=== PATIENT | female | born 1975 | race Hispanic/Latino ===

== ENCOUNTER 2016-04-22 19:18 | Emergency (ER) | payer SELFPAY ==
[2016-04-22 19:53] VITALS: BP 110/74; TEMP 97.2; O2SAT 95
--- NOTE | 2016-04-22 20:05 | ED.PDOC ---
History of Present Illness - General Chief Complaint: Fever Stated Complaint: fever / sinus congestion Time Seen by Provider: 04/22/16 20:02 Source: patient, RN notes reviewed, Vital Signs reviewed Exam Limitations: no limitations - History of Present Illness Initial Comments: Patient is a 40 y/o female who has had sinus congestion for the past 2 days and started having subjective fever today. She has a headache. She took Benadryl which helped a little. She has been very tired. She denies any tooth pain, sore throat or ear pain. The headache is mild and feels like pressure. Timing/Duration: 24 hours, getting worse Severity: mild Improving Factors: medication - Benadryl Worsening Factors: nothing Associated Symptoms: fever/chills, headaches, loss of appetite, weakness Allergies/Adverse Reactions: Allergies NO KNOWN ALLERGY Allergy (Verified 10/19/15 17:49) Home Medications: Ambulatory Orders Amoxicillin 875 mg PO BID #20 tab 04/22/16 Review of Systems - Review of Systems Constitutional: States: chills, fever, malaise, weakness EENTM: States: nose congestion Respiratory: States: no symptoms reported Cardiology: States: no symptoms reported Gastrointestinal/Abdominal: States: nausea Musculoskeletal: States: no symptoms reported Skin: States: no symptoms reported Neurological: States: weakness Endocrine: States: no symptoms reported Hematologic/Lymphatic: States: no symptoms reported All other Systems: Reviewed and Negative Past Medical History (General) - Patient Medical History Hx Seizures: No Hx Stroke: No Hx Dementia: No Hx Asthma: No Hx of COPD: No Hx Cardiac Disorders: No Hx Congestive Heart Failure: No Hx Pacemaker: No Hx Hypertension: Yes Hx Thyroid Disease: No Hx Diabetes: No Hx Gastroesophageal Reflux: No Hx Renal Disease: No Hx Cancer: No Hx of HIV: No Hx Hepatitis C: No Hx MRSA: No Surgical History: cholecystectomy - Vaccination History Hx Tetanus, Diphtheria Vaccination: No Hx Influenza Vaccination: No Hx Pneumococcal Vaccination: No Immunizations Up to Date: Yes - Social History Hx Tobacco Use: Yes Hx Chewing Tobacco Use: No Hx Alcohol Use: No Hx Substance Use: No Hx Substance Use Treatment: No Hx Depression: Yes Hx Physical Abuse: No Hx Emotional Abuse: No Hx Suspected Abuse: No - Female History Patient is a Female of Child Bearing Age (10 -59 yrs old): Yes Patient : No Family Medical History - Family History Mother Living Status: Still Living Hx Family Asthma: No Hx Family Congestive Heart Failure: No Hx Family Hypertension: Yes Hx Family Diabetes: Yes Hx Family Cancer: Yes Hx Family;Other: Thyroid problems Father Living Status: Hx Family Diabetes: Yes Hx Family;Other: Kidney problems Physical Exam - Physical Exam General Appearance: Alert, Comfortable, No apparent distress Eye Exam: bilateral normal Ears, Nose, Throat: hearing grossly normal, normal pharynx, nasal congestion, other - erythematous nasal mucous membranes Neck: non-tender, full range of motion, supple, lymphadenopathy (L) - Anterior cervical Respiratory: lungs clear, normal breath sounds, no respiratory distress, no accessory muscle use Cardiovascular/Chest: regular rate, rhythm, no edema, no gallop, no murmur Gastrointestinal/Abdominal: normal bowel sounds, non tender, soft, no organomegaly Extremity: normal range of motion, non-tender, normal inspection, no pedal edema Neurologic: alert, normal mood/affect, oriented x 3 Skin Exam: normal color, warm/dry Progress - EKG/XRAY/CT CT Ordered: No CT Interpretation Call Back: No Departure - Departure Clinical Impression: Acute sinusitis Qualifiers: Sinusitis location: unspecified location Recurrence: not specified Qualifier Code: (J01.90) Acute sinusitis, unspecified Time of Disposition: 20:07 Disposition: Discharge to Home or Self Care Condition: Excellent Departure Forms: ED Discharge - Pt. Copy, Patient Portal Self Enrollment Instructions: Sinusitis, DI for Sinusitis Diet: resume usual diet Prescriptions: Amoxicillin 875 mg PO BID #20 tab Home Medications: Ambulatory Orders Amoxicillin 875 mg PO BID #20 tab 04/22/16 Additional Instructions: Get over the counter: Flonase or Nasacort--two sprays in each nostril daily Pseudoephedrine (decongestant)-take per package instructions Guaifenesin (Mucinex)-take per package instructions Nasal saline wash--twice daily. Use only saline packets with distilled water. Follow product instructions. Tylenol 650 mg alternated with Ibuprofen 600 mg every 3 hours for fever/pain. Follow up with PCP if symptoms persist or ED if symptoms worsen.
== END 2016-04-22 20:18 | disposition home or self-care (01) ==
LOC: ER 19:18
DX: J01.90 Acute sinusitis, unspecified (principal); I10 Essential (primary) hypertension; Z87.891 Personal history of nicotine dependence

== ENCOUNTER 2020-01-11 10:41 | Emergency (ER) | payer SELFPAY ==
--- NOTE | 2020-01-11 10:55 | ED.PDOC ---
History of Present Illness - General Time Seen by Provider: 01/11/20 10:45 Source: patient, RN notes reviewed, Vital Signs reviewed, old records Exam Limitations: no limitations - History of Present Illness Initial Comments: 44 yo F with PMH HTN comes in with 4 days of body aches, chills, congestion, mild cough. Last night developed loose stools. no black or bloody bm. looks green per patient. no n/v/abd pain. no chest pain or shortness of breath. Was exposed to covid at [facility] but cousin who was Positive. Allergies/Adverse Reactions: Allergies NO KNOWN ALLERGY Allergy (Verified 10/19/15 17:49) Review of Systems - Review of Systems Constitutional: States: chills, malaise. Denies: fever EENTM: States: nose congestion. Denies: blurred vision, ear pain, ear discharge, nose pain, throat pain, mouth pain Respiratory: States: cough. Denies: short of breath Cardiology: Denies: chest pain, palpitations Gastrointestinal/Abdominal: States: diarrhea. Denies: abdominal pain, constipation, nausea, vomiting Genitourinary: Denies: discharge, dysuria, frequency Musculoskeletal: Denies: back pain, joint pain Skin: Denies: rash Neurological: States: headache. Denies: numbness, paresthesia, weakness Endocrine: Denies: unexplained weight loss Hematologic/Lymphatic: Denies: easy bleeding, easy bruising Past Medical History (General) - Patient Medical History Hx Seizures: No Hx Stroke: No Hx Dementia: No Hx Asthma: No Hx of COPD: No Hx Cardiac Disorders: No Hx Congestive Heart Failure: No Hx Pacemaker: No Hx Hypertension: Yes Hx Thyroid Disease: No Hx Diabetes: No Hx Gastroesophageal Reflux: No Hx Renal Disease: No Hx Cancer: No Hx of HIV: No Hx Hepatitis C: No Hx MRSA: No - Vaccination History Hx Tetanus, Diphtheria Vaccination: No Hx Influenza Vaccination: No Hx Pneumococcal Vaccination: No - Social History Hx Tobacco Use: Yes Hx Chewing Tobacco Use: No Hx Alcohol Use: No Hx Substance Use: No Hx Substance Use Treatment: No Hx Depression: Yes Hx Physical Abuse: No Hx Emotional Abuse: No Hx Suspected Abuse: No - Female History Patient : No Family Medical History - Family History Mother Living Status: Still Living Hx Family Asthma: No Hx Family Congestive Heart Failure: No Hx Family Hypertension: Yes Hx Family Diabetes: Yes Hx Family Cancer: Yes Hx Family;Other: Thyroid problems Father Living Status: Hx Family Diabetes: Yes Hx Family;Other: Kidney problems Physical Exam - Physical Exam General Appearance: Alert, Comfortable, Well Developed, Well Groomed, Well Hydrated, Well Nourished Eye Exam: bilateral normal Ears, Nose, Throat: hearing grossly normal, normal ENT inspection, normal pharynx Neck: non-tender, full range of motion, supple, normal inspection Respiratory: chest non-tender, lungs clear, normal breath sounds, no respiratory distress, no accessory muscle use Cardiovascular/Chest: normal peripheral pulses, regular rate, rhythm, no edema, no gallop, no JVD, no murmur Peripheral Pulses: radial,right: 2+, radial,left: 2+ Gastrointestinal/Abdominal: normal bowel sounds, non tender, soft, no organomega ly Rectal Exam: deferred Back Exam: normal inspection, no CVA tenderness, no vertebral tenderness Extremity: normal range of motion, non-tender, normal inspection, no pedal edema, no calf tenderness, normal capillary refill 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 II-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 nml as tested, no motor/sensory deficits, alert, normal mood/affect Skin Exam: normal color, warm/dry Progress - Progress Progress: 01/11/20 11:31 01/11/20 11:31 Discharge Stat Laboratory Results WBC 3.8 K/mm3 (4.8-10.8) L 01/11/20 11:04 RBC 5.04 M/mm3 (4.20-5.40) 01/11/20 11:04 Hgb 14.5 gm/dL (12.0-16.0) 01/11/20 11:04 Hct 42.5 % (36.0-47.0) 01/11/20 11:04 MCV 84.3 fl (81.0-99.0) 01/11/20 11:04 MCH 28.7 pg (27.0-31.0) 01/11/20 11:04 MCHC 34.1 g/dL (33.0-37.0) 01/11/20 11:04 RDW 13.6 % (11.5-14.5) 01/11/20 11:04 Plt Count 132 K/mm3 (130-400) 01/11/20 11:04 MPV 9.5 fl (7.40-10.4) 01/11/20 11:04 Absolute Neuts (auto) 1.70 K/uL (1.8-6.8) L 01/11/20 11:04 Absolute Lymphs (auto) 1.80 K/uL (1.0-3.4) 01/11/20 11:04 Absolute Monos (auto) 0.30 K/uL (0.2-0.8) 01/11/20 11:04 Absolute Eos (auto) 0.00 K/uL (0.0-0.4) 01/11/20 11:04 Absolute Basos (auto) 0.00 K/uL (0.0-0.1) 01/11/20 11:04 Neutrophils % 44.3 % (42.0-78.0) 01/11/20 11:04 Lymphocytes % 46.5 % (20.0-50.0) 01/11/20 11:04 Monocytes % 7.0 % (2.0-9.0) 01/11/20 11:04 Eosinophils % 1.2 % (1.0-5.0) 01/11/20 11:04 Basophils % 1.0 % (0.0-2.0) 01/11/20 11:04 Sodium 142 mmol/L (135-145) 01/11/20 11:04 Potassium 3.8 mmol/L (3.6-5.0) 01/11/20 11:04 Chloride 107 mmol/L (101-111) 01/11/20 11:04 Carbon Dioxide 24 mmol/L (21-31) 01/11/20 11:04 Anion Gap 14.8 (12-18) 01/11/20 11:04 BUN 14 mg/dL (7-18) 01/11/20 11:04 Creatinine 0.76 mg/dL (0.6-1.3) 01/11/20 11:04 BUN/Creatinine Ratio 18.4 (10-20) 01/11/20 11:04 Random Glucose 100 mg/dL (70-105) 01/11/20 11:04 Serum Osmolality 283.7 mOsm/L (275-295) 01/11/20 11:04 Calcium 8.9 mg/dL (8.4-10.2) 01/11/20 11:04 Total Bilirubin 0.5 mg/dL (0.2-1.0) 01/11/20 11:04 AST 42 IU/L (10-42) 01/11/20 11:04 ALT 59 IU/L (10-60) 01/11/20 11:04 Alkaline Phosphatase 88 IU/L (42-121) 01/11/20 11:04 C-Reactive Protein < 0.8 mg/dL (0-1.0) 01/11/20 11:04 Serum Total Protein 8.1 gm/dL (6.4-8.2) 01/11/20 11:04 Albumin 3.9 g/dl (3.2-5.5) 01/11/20 11:04 Globulin 4.2 gm/dL (2.3-3.5) H 01/11/20 11:04 Albumin/Globulin Ratio 0.9 (1.1-1.9) L 01/11/20 11:04 - Results/Orders Results/Orders: The data reviewed when caring for this patient included: nurse notes, prior records, etc. The history and assessments from nurses notes were reviewed and considered, and the patient's home medication list was also reviewed and considered. My assessment and the results of testing completed here in the ED were discussed with the patient/family. All questions were answered, and they express understanding of my assessment and the plan. They have been instructed to return if their symptoms worsen, and have been asked to follow up. return precautions given. Parvin Vasquez DO #[id number] - EKG/XRAY/CT XRAY: chest - no acute cardiopulmonary pathology Departure - Departure Clinical Impression: COVID-19 Time of Disposition: 11:21 Disposition: Discharge to Home or Self Care Condition: Fair Instructions: Cough, Adult (DC) Diet: resume usual diet Activity: increase activity as tolerated Referrals: Nilda Dyer MD [Primary Care Provider] - 1-2 Weeks
[2020-01-11] MEDS ORDERED: DEXAMETHASONE INJ 10 MG/ML VIAL IV ONE (11:20)
--- NOTE | 2020-01-11 11:25 | RAD ---
PROCEDURE:XR CHEST 1 VIEW HISTORY:cough COMPARISON: None FINDINGS: The heart appears unremarkable. The lungs are clear there is no alveolar consolidation, effusion or pneumothorax. There are no acute bony or soft tissue abnormalities. IMPRESSION: No acute cardiopulmonary process. Electronically signed by: Luis A Hannah MD 01/11/2020 11:23 AM [facility]
[2020-01-11 12:13] VITALS: BP 143/96; TEMP 97.6; O2SAT 99
== END 2020-01-11 12:11 | disposition home or self-care (01) ==
LOC: ER 10:41
DX: U07.1 COVID-19 (principal); I10 Essential (primary) hypertension; F32.9 Major depressive disorder, single episode, unspecified; Z87.891 Personal history of nicotine dependence
CPT/HCPCS: 36415; 71045; 80053; 85025; 86140; 87502; 87635; J1100